=== PATIENT | male | born 1995 | race Caucasian/White ===

== ENCOUNTER 2016-11-02 09:01 | Emergency (ER) | payer SELFPAY ==
[~2016-11-02] VITALS: Ht 193 cm; Wt 120.2 kg
[2016-11-02] MEDS ORDERED: PROTONIX PO STA (09:37)
--- NOTE | 2016-11-02 09:42 | ER.PDOC ---
General Chief Complaint: Abdomen Pain Stated Complaint: ABDOMEN PAIN Time seen by MD: 09:30 Source: patient History of Present Illness Timing/Duration: 1-3 hours Severity/Quality: moderate Radiation: RUQ, RLQ Allergies: Coded Allergies: No Known Allergies (Unverified , 11/02/16) Home Meds No Active Prescriptions or Reported Meds Vital Signs First Vital Signs Date Time Temp Pulse Resp B/P Pulse Ox O2 Delivery O2 Flow Rate FiO2 11/02/16 09:14 97.8 85 18 95 11/02/16 09:17 140/88 Last Vital Signs Date Time Temp Pulse Resp B/P Pulse Ox O2 Delivery O2 Flow Rate FiO2 11/02/16 09:17 97.8 74 18 140/88 97 Past Medical History Medical History: asthma Surgical History: no surgical history Social History Smoking: non-smoker Alcohol Use: other Drug Use: none Constitutional: see HPI EENTM: no symptoms reported Respiratory: no symptoms reported Cardiovascular: no symptoms reported Gastrointestinal: see HPI Genitourinary: no symptoms reported Musculoskeletal: no symptoms reported Skin: no symptoms reported Psychiatric/Neurological: no symptoms reported Endocrine: no symptoms reported Hematologic/Lymphatic: no symptoms reported Physical Exam General Appearance: No Apparent Distress HEENT: PERRL/EOMI Neck: Non-Tender Respiratory: lungs clear Cardiovascular: Normal Peripheral Pulses, Regular Rate, Rhythm Gastrointestinal: Tenderness (RUQ and righ abdomen ), McBurneys point tender Back: Normal Inspection Extremities: Normal Range of Motion Course Blood Pressure Systolic: 140 Blood Pressure Diastolic: 88 Blood Pressure Mean: 105 Departure Time of Disposition: 09:42 Disposition: 01 HOME, SELF-CARE Impression: Primary Impression: Gall bladder stones Additional Impressions: Gastritis H. pylori infection Condition: Stable Referrals: PCP,UNKNOWN (PCP) PRIMARY CARE PROVIDER Scripts No Active Prescriptions or Reported Meds Problem Qualifiers MARGARET MALDONADO MD Nov 02, 2016 09:42
[2016-11-02] MEDS ORDERED: PROTONIX PO ONE (09:48)
[2016-11-02] MEDS ORDERED: MORPHINE SULFATE ONE (09:49)
[2016-11-02 09:53] LABS: BASOPHIL % 0.1 % (0.0-0.2); EOSINOPHIL # 0.1 10^3/uL (0.0-0.2); EOSINOPHIL % 0.7 % (0.0-5.0); HEMOGLOBIN 15.4 g/dL (13.2-15.6); LYMPHOCYTES # 1.7 10^3/uL (1.2-5.2); LYMPHOCYTES % 11.5 % (24.0-44.0); MEAN CELL HGB 27.2 pg (26-34); MEAN CELL HGB CONCENTRATION 34.6 g/dL (33-37); MEAN CORP VOLUME 78.5 fL (78-100); MONOCYTES # 0.8 10^3/uL (0.0-0.4); MONOCYTES % 5.4 % (5.0-12.0); NEUTROPHIL # 12.1 10^3/uL (1.8-8.0); NEUTROPHILS % 82.1 % (41.0-85.0); PLATELET COUNT 191 10^3/uL (150-400); RED CELL DISTRIBUTION WIDTH 13.3 % (11.5-14.5); WHITE BLOOD CELL 14.7 10^3/uL (4.5-13.0)
--- NOTE | 2016-11-02 09:55 | NUR ---
US CONTACTED DIOMEDES, TOURIST AGENT FOR US.
[2016-11-02] MEDS ORDERED: MORPHINE SULFATE IM PRN (10:00)
[2016-11-02 10:08] LABS: ALANINE AMINOTRANSFERASE(ML) 35 U/L (12-78); ALKALINE PHOSPHATASE 69 U/L (50-136); ASPARTATE AMINO TRANSFERASE 16 U/L (0-35); CALCIUM 8.8 mg/dL (8.4-10.5); CARBON DIOXIDE 27.1 mmol/L (20.0-32); GLUCOSE 97 mg/dL (70-110)
--- NOTE | 2016-11-02 10:27 | NUR ---
UA PT AMBULATED TO RESTROOM TO OBTAIN A UA
--- NOTE | 2016-11-02 10:38 | NUR ---
US PT TO ULTRASOUND FOR GB SONO
[2016-11-02 10:42] LABS: APPEARANCE,URINE CLEAR (CLEAR); BILIRUBIN,URINE NEGATIVE (NEGATIVE); UA COLOR YELLOW (YELLOW); UROBILINOGEN,URINE NORMAL (NEGATIVE)
--- NOTE | 2016-11-02 11:00 | NUR ---
US PT BACK FROM
--- NOTE | 2016-11-02 11:16 | DIREP ---
PROCEDURE:US ABDOMEN LIMITED(SINGLE ORGAN,QUAD) COMPARISON:None. INDICATIONS:cholecystitis, ABD PAIN, NAUSEA X1 DAY FINDINGS: LIVER:Normal hepatic parenchymal architecture. BILIARY:Small gallstones in the gallbladder. The common bile duct measures 3 mm. The gallbladder wall measures 3 mm in thickness. PANCREAS:Not well visualized due to overlying bowel gas. RIGHT KIDNEY:Normal. The right kidney measures 13.9 x 6.7 x 6.7 cm. OTHER:Negative. No ascites is identified. CONCLUSION:Small gallstones in the gallbladder. Dictated by: Benjy Collins M.D. on 11/02/2016 at 11:08 AM
== END 2016-11-02 12:30 | disposition home or self-care (01) ==
LOC: ER 09:01
DX: K80.20 Calculus of gallbladder without cholecystitis without obstruction (principal); K29.70 Gastritis, unspecified, without bleeding; B96.81 Helicobacter pylori [H. pylori] as the cause of diseases classified elsewhere; J45.909 Unspecified asthma, uncomplicated
CPT/HCPCS: 36415; 76705; 80053; 81002; 83690; 85025; 86140; 86677; 96372; 99285; J2270